=== PATIENT | male | born 1950 | race Caucasian/White ===

== ENCOUNTER → 2020-10-02 15:19 | Outpatient (CLI) | payer MEDICARE, SELFPAY ==
--- NOTE | 2020-10-02 15:22 | CT_ITS ---
PROCEDURE: CT LUNG SCREENING CLINICAL INDICATION: H/O NICOTINE DEPENDENCE Current smoker 50 pack year smoking history No prior COMPARISON: No exams were available for comparison TECHNIQUE: The exam was performed on a GE Light Speed [address] scanner using 2.90 mGy CTDI. A low dose helical CT CHEST was performed on a multi-detector scanner. All CT scans at the facility use one or more dose reduction, viz: automated exposure control, ma/kV adjustment per patient size (including targeted exams where dose is matched to indication, i.e. head), or iterative reconstruction technique. The LDCT was performed in a facility that meets the criteria for the screening program. Data regarding this exam was submitted to ACR which is an approved registry. The order for this exam indicates that it came as a result of a lung cancer screening counseling shard decision-making visit that included all the elements required of such a visit including smoking cessation. The radiologist interpreting this exam meets the [facility] criteria for the LDCT lung cancer screening program. The exam is reported using the Lung-RADS classification scale and reported to the ACR registry. NOTE: This study was performed for the specific purposes of lung cancer screening and is not an alternative to diagnostic chest CT. RADIATION DOSE: CTDI vol(CT dose Index-volume) = 2.90mG DLP (Dose Length Product) = 104.46 mGcm FINDINGS: COPD changes with scattered areas of scarring. Small area of thickening involves the right minor fissure image 42. 3 mm nodular opacity along the major fissure on the right image 47. 6 mm nodular opacity along the right major fissure laterally image 52. 4 mm nodular opacity right lung base posteriorly image 64, 3 mm lingular nodule laterally image 44 R. 3 mm opacity lingula inferiorly image 58 and 3 mm nodular opacity image 59 in the left lower lobe anterior laterally. The above mentioned image numbers are all in series 3. Recommend six-month CT chest with contrast for follow-up of the small probably benign nodules. OTHER FINDINGS: Cholelithiasis. Coronary artery calcifications IMPRESSION: Lung-RADS Category 3 Probably Benign regarding multiple small pulmonary nodules Follow-up: [address] Chest with contrast. Dictated by: Vinicio Montes MD 10/05/2020 08:20 Vinicio Montes MD in [place] 10/05/2020 08:20
== END ==
PROVIDERS: PCP Internal Medicine Adolescent Medicine; Visit Provider Internal Medicine Adolescent Medicine
DX: Z87.891 Personal history of nicotine dependence (principal); Z12.2 Encounter for screening for malignant neoplasm of respiratory organs
CPT/HCPCS: 71271

== ENCOUNTER → 2022-01-10 10:29 | Outpatient (CLI) | payer MEDICARE, SELFPAY | PROVIDERS: PCP Nurse Practitioner Family; Visit Provider Nurse Practitioner Family | DX: R06.02 Shortness of breath (principal); R60.0 Localized edema | CPT/HCPCS: 93306 ==

== ENCOUNTER → 2022-01-20 15:14 | Outpatient (CLI) | payer MEDICARE, SELFPAY ==
--- NOTE | 2022-01-20 15:17 | CT_ITS ---
FINAL REPORT TECHNIQUE: Axial images were obtained from the lung apex to the mid abdomen by computed tomography. This study was performed with techniques to keep radiation doses as low as reasonably achievable (ALARA). Individualized dose reduction techniques using automated exposure control or adjustment of mA and/or kV according to the patient's size were employed. CLINICAL HISTORY: LUNG NODULE COMPARISON: 10/02/2020 FINDINGS: CHEST CT LOW DOSE CTDI vol (mGy): 2.70 DLP (mGy-cm): 95.1 There is no axillary adenopathy. There is no hilar or mediastinal adenopathy. The heart is normal in size. There is no pericardial or pleural effusion. There is mild emphysema and mild scarring. There is a 3 mm nodule adjacent to the major fissure, stable. There is a 6 mm nodule along the right major fissure, stable. Several other less than 5 mm nodules are stable. No new mass or nodule is identified. And noted is cholelithiasis. IMPRESSION: Stable nodules. Lung RADS category 2. Recommend 12 month follow-up low-dose chest CT. Reviewed, Interpreted and Dictated by Jeffy Brito III, MD Transcribed by Sofia Rhoades Authenticated and [facility]
== END ==
PROVIDERS: PCP Nurse Practitioner Family; Visit Provider Nurse Practitioner Family
DX: Z87.891 Personal history of nicotine dependence (principal); Z12.2 Encounter for screening for malignant neoplasm of respiratory organs; R91.1 Solitary pulmonary nodule
CPT/HCPCS: 71271

== ENCOUNTER → 2022-01-24 10:56 | Outpatient (POV) | payer MEDICARE, SELFPAY ==
[2022-01-24 11:19] VITALS: BP 133/79; PULSE 97; RESP 18; TEMP 37.2; O2SAT 97; BMI 28.1
--- NOTE | 2022-01-24 11:53 | EXP.PAIN.OV ---
HPI Data of Consult Patient: new to practice Consult date: 01/24/22 Requesting Physician: Dianna Mosley APRN Primary Care Provider: Denise Alvarado APRN Consult Narrative Reason for consult: Low back pain, left leg pain History of present illness: Mr. Marino is a 71 year old male who presents today as a new patient. He is a referral from Fouzia Alvarado's office. Today he rates his pain a 8 out of 10. Patient states his pain is primarily in his low back that radiates into his left leg. He describes this as a aching, throbbing sensation with numbness and tingling. Patient denies any new trauma or injury. Patient states he has had low back pain for the last 2 to 3 years however it is progressively worsened over time. Patient states this frequently is worse at night when he lays down and often affects his sleeping. Patient does use ibuprofen as needed to help with his pain symptoms. Patient is also used heat and ice in the past. Patient has not been to physical therapy or had any lumbar imaging in the past. Patient has been to see a chiropractor that did provide significant help. Back in June the patient had worsening of his symptoms and started back going to the chiropractor. Patient denies any kidney issues or cardiac issues however he did state he has recently been experiencing swelling in his bilateral ankles and was given Lasix. Patient did have a echo that was normal. Patient has also had recent oral steroids that provided improvement of his symptoms however short-term. Patient is not currently on any scheduled medications. His Kenn is [phone]. It has been reviewed and appropriate. CC: Dianna Mosley APRN [facility] Medical History (Updated 01/24/22 @ 11:58 by Dianna Mosley APRN) Chronic back pain Social History (Updated 01/24/22 @ 11:24 by Vivi Be RN) Smoking Status: Current every day smoker alcohol intake: never current occupational status: retired Travel in the last 8 weeks: None Review of Systems Review of Systems Review of systems:: pertinent systems reviewed and negative unless documented below Review of systems (narrative): Review of Systems: General: No recent weight changes, no fever, no sleep disturbances Respiratory: No cough, no shortness of air, no recurring pulmonary infections Cardiovascular/peripheral vascular: No chest pain, no palpitations, no edema, no shortness of breath Gastrointestinal: No new onset incontinence, normal bowel movements reported Genitourinary: No new onset incontinence Musculoskeletal: Low back pain, left leg pain Psychiatric: [Normal mood/affect] Neurological: [Denies weakness in extremities], [denies balance issues] Meds Home Medications and Allergies Home Medications Medication Instructions Recorded Confirmed Type furosemide 20 mg tablet 20 mg PO NEEDED PRN FLUID 01/24/22 01/24/22 History New Prescriptions to Start Prescriptions: Objective Vital signs: Temp Pulse Resp BP Pulse Ox 98.9 F 97 H 18 133/79 97 01/24/22 11:19 01/24/22 11:19 01/24/22 11:19 01/24/22 11:19 01/24/22 11:19 Narrative: Physical Exam: General: Alert and oriented x3, no acute distress, pleasant and cooperative Lungs: Respirations even and unlabored, symmetrical chest expansion Eyes: PERRL Musculoskeletal: Flexion and extension of lumbar [spine] somewhat guarded secondary to pain, [antalgic gait noted] Neurological: Speech clear, no gross sensory deficit Assessment and Plan *Assessment and plan (1) Low back pain: Status: Acute Category: Medical Code(s): M54.50 - Low back pain, unspecified (2) Left leg pain: Status: Acute Category: Medical Code(s): M79.605 - Pain in left leg (3) Degenerative disc disease, lumbar: Status: Acute Category: Medical Code(s): M51.36 - Other intervertebral disc degeneration, lumbar region (4) Lumbar radiculopathy: Status: Acute Category
== END | disposition home or self-care (01) ==
PROVIDERS: PCP Nurse Practitioner Family; Visit Provider Nurse Practitioner Family
DX: M51.16 Intervertebral disc disorders with radiculopathy, lumbar region (principal); M79.605 Pain in left leg
CPT/HCPCS: 99202; G0463

== ENCOUNTER 2022-01-28 15:26 | Day surgery (SDC) | payer MEDICARE, SELFPAY ==
[2022-01-28 15:50] VITALS: BP 149/85; PULSE 92; RESP 18; TEMP 36.8; O2SAT 98; BMI 28.1
[2022-01-28 16:24] VITALS: BP 186/89; PULSE 105; RESP 18; O2SAT 97
[2022-01-28 16:27] VITALS: BP 186/89; PULSE 105; RESP 18; O2SAT 97
--- NOTE | 2022-01-28 16:31 | EXP.PAIN.PRO ---
Procedure Date: 01/28/22 Time: 16:32 Anesthesiologist:: Marky Yoon MD Complications:: None Pre-procedure Diagnosis:: Degenerative disc disease of lumbar spine with lumbar radiculopathy symptoms. Post-procedure Diagnosis:: Same Indications for Procedure:: This patient is a pleasant 71-year-old white male who we are treating for low back pain with lumbar radiculopathy symptoms. He has increasing pain in his back rating down both legs. We will plan on a lumbar epidural steroid injection under fluoroscopy today. Procedure Details:: Informed consent was obtained and the risk and benefits of the procedure was explained to the patient. The patient was taken to the procedure room. The patient was placed prone on the procedure table. The patient was prepped and draped in sterile fashion. C-arm fluoroscopy was used to view the lumbar spine. Skin and subcutaneous tissues were anesthetized using lidocaine. I placed an 18-gauge epidural needle and advanced into the L4-L5 interspace using fluoroscopic guidance and leyo-fs-susxdqdeqo to air. After confirmation of needle placement in the epidural space with dye I injected 2 mL of lidocaine 1.5% with Depo-Medrol 80 mg. Patient tolerated the procedure well with no complications. Plan and Disposition:: We will follow-up with him in 2 weeks. Will reevaluate symptoms at that time.
[2022-01-28 16:45] VITALS: BP 142/84; PULSE 66; RESP 20; O2SAT 98
== END 2022-01-28 16:45 | disposition home or self-care (01) ==
PROVIDERS: PCP Nurse Practitioner Family; Visit Provider Anesthesiology
DX: M51.16 Intervertebral disc disorders with radiculopathy, lumbar region (principal)
CPT/HCPCS: 62323; J1040; Q9966

== ENCOUNTER → 2022-02-03 14:12 | Outpatient (CLI) | payer MEDICARE, SELFPAY ==
--- NOTE | 2022-02-03 14:15 | MR_ITS ---
FINAL REPORT CLINICAL HISTORY: LOWER BACK PAIN lower back pain with left leg pain x 2 months numbness and tinglin g FINDINGS: Multiplanar MR imaging of the lumbar spine was performed without contrast. On the sagittal T2-weighted images, there is abnormal decreased signal throughout the lumbar discs. There is moderate loss of disc height at L5-S1. The vertebrae are of normal height. The vertebral alignment is normal. T12-L1: There is no significant canal stenosis or neural foraminal narrowing. L1-2: There is no significant canal stenosis or neural foraminal narrowing. L2-3: There is no significant canal stenosis or neural foraminal narrowing. L3-4: Mild diffuse disc bulge with mild bilateral neural foraminal narrowing. L4-5: Yofa-xs-kgbfnfqb diffuse disc bulge with mild bilateral facet hypertrophy. Moderate bilateral neural foraminal narrowing. L5-S1: Mild diffuse disc bulge with endplate hypertrophy. High-grade left and moderate right neural foraminal narrowing. IMPRESSION: Diffuse changes of degenerative disc disease with neural foraminal compromise most evident bilaterally at L4-L5 and on the left at L5-S1. Reviewed, Interpreted and Dictated by Bhupendra Jackson MD Transcribed by Joshua Regan Authenticated and [facility]
== END ==
PROVIDERS: PCP Nurse Practitioner Family; Visit Provider Nurse Practitioner Family
DX: M54.50 Low back pain, unspecified (principal)
CPT/HCPCS: 72148; 76376

== ENCOUNTER → 2022-02-15 10:18 | Outpatient (POV) | payer MEDICARE, SELFPAY ==
[2022-02-15 10:43] VITALS: BP 124/88; PULSE 90; RESP 18; O2SAT 96; BMI 28.1
--- NOTE | 2022-02-15 11:15 | EXP.PAIN.SOA ---
[facility] Pain Management SOAP Note Subjective:: Patient is a pleasant 71-year-old male who presents today for follow-up of lumbar epidural steroid injection at L4-L5 on 01/28/2022. We are currently treating the patient for degenerative disc disease of lumbar spine with lumbar radiculopathy symptoms. Patient states he has had 75 to 80% relief following this injection and states it lasted for approximately 3 weeks. Patient states over the last couple of nights he has had worsened throbbing pain around his calves that wakes him up in the middle of the night. Patient states he frequently has to get up and move around in order to get any relief. I did prescribe him at our last visit tizanidine 4 mg at bedtime. Patient stated this medication did seem to help improve some of his symptoms. Patient has recently had a MRI of his lumbar spine. Patient does manage his pain with ozwy-ert-fnezgyb ibuprofen, heat and ice to provide some improvement. Patient has been seen by a chiropractor in the past that provided some relief. He is not currently on any scheduled medications. His Kenn is [phone]. It has been reviewed and appropriate. Review of Systems: General: No recent weight changes, no fever, no sleep disturbances Respiratory: No cough, no shortness of air, no recurring pulmonary infections Cardiovascular/peripheral vascular: No chest pain, no palpitations, no edema, no shortness of breath Gastrointestinal: No new onset incontinence, normal bowel movements reported Genitourinary: No new onset incontinence Musculoskeletal: Low back pain, leg pain Psychiatric: [Normal mood/affect] Neurological: [Denies weakness in extremities], [denies balance issues] Objective:: Physical Exam: General: Alert and oriented x3, no acute distress, pleasant and cooperative Lungs: Respirations even and unlabored, symmetrical chest expansion Eyes: PERRL Musculoskeletal: Flexion and extension of lumbar [spine] somewhat guarded secondary to pain, [antalgic gait noted] Neurological: Speech clear, no gross sensory deficit CLINICAL HISTORY: LOWER BACK PAIN? lower back pain with left leg pain x 2 months numbness and tinglin g FINDINGS: Multiplanar MR imaging of the lumbar spine was performed without contrast. On the sagittal T2-weighted images, there is abnormal decreased signal throughout the lumbar discs.? There is moderate loss of disc height at L5-S1.? The vertebrae are of normal height. The vertebral alignment is normal.? ? T12-L1: There is no significant canal stenosis or neural foraminal narrowing. L1-2: There is no significant canal stenosis or neural foraminal narrowing.? L2-3: There is no significant canal stenosis or neural foraminal narrowing.? L3-4:? Mild diffuse disc bulge with mild bilateral neural foraminal narrowing.? L4-5: Scef-yj-yfrcndyh diffuse disc bulge with mild bilateral facet hypertrophy.? Moderate bilateral neural foraminal narrowing. L5-S1:? Mild diffuse disc bulge with endplate hypertrophy. High-grade left and moderate right neural foraminal narrowing. IMPRESSION: Diffuse changes of degenerative disc disease with neural foraminal compromise most evident bilaterally at L4-L5 and on the left at L5-S1. Reviewed, Interpreted and Dictated by Bhupendra Jackson MD Transcribed by Joshua Regan Authenticated and [facility] Assessment:: Degenerative disc disease of lumbar spine with lumbar radiculopathy symptoms, restless leg syndrome Plan:: Patient has had significant improvement of his pain symptoms in his low back following his last lumbar epidural steroid injection. Patient's MRI did show degenerative disc disease with neuroforaminal compromise most evident bilaterally at L4-L5 on the left at L5-S1. I have counseled the patient that he may require additional lumbar epidurals in the future at this location. Patient is experiencing worsening cramping, throbbing in his lower extremities
== END | disposition home or self-care (01) ==
PROVIDERS: PCP Nurse Practitioner Family; Visit Provider Nurse Practitioner Family
DX: M51.16 Intervertebral disc disorders with radiculopathy, lumbar region (principal); G25.81 Restless legs syndrome
CPT/HCPCS: 99212; G0463

== ENCOUNTER → 2022-03-24 11:02 | Outpatient (POV) | payer MEDICARE, SELFPAY ==
--- NOTE | 2022-03-24 11:20 | A.OFFVIS_ITS ---
[facility] Pain Management SOAP Note Subjective:: Patient is a pleasant 72-year-old male who presents today for follow-up. We are currently treating the patient for degenerative disc disease of lumbar spine with lumbar radiculopathy symptoms. Today he rates his pain a 0 out of 10. Patient previously had a lumbar epidural at L4-L5 on 01/28/2022 and he is still seeing improvement from this injection. Patient states he will occasionally have some pains in his leg but overall has done very well. Patient is managed with tizanidine 4 mg at bedtime. Patient denies any side effects from this medication. He states this medication does help with his sleeping at night. Patient has continue to use vacp-sld-ermrfzm ibuprofen along with heat and ice. Patient does have a history of seeing a chiropractor with some additional relief. Patient is not on any scheduled medications. His Kenn is [phone]. Its been reviewed and appropriate Review of Systems: General: No recent weight changes, no fever, no sleep disturbances Respiratory: No cough, no shortness of air, no recurring pulmonary infections Cardiovascular/peripheral vascular: No chest pain, no palpitations, no edema, no shortness of breath Gastrointestinal: No new onset incontinence, normal bowel movements reported Genitourinary: No new onset incontinence Musculoskeletal: Leg pain Psychiatric: [Normal mood/affect] Neurological: [Denies weakness in extremities], [denies balance issues] Objective:: Physical Exam: General: Alert and oriented x3, no acute distress, pleasant and cooperative Lungs: Respirations even and unlabored, symmetrical chest expansion Eyes: PERRL Musculoskeletal: Flexion and extension of lumbar [spine] somewhat guarded secondary to pain, [antalgic gait noted] Neurological: Speech clear, no gross sensory deficit Assessment:: Degenerative disc disease of lumbar spine with lumbar radiculopathy symptoms Plan:: Patient has continued to have significant improvement in his pain symptoms following his last lumbar epidural steroid injection. At this time he does not need any additional injective therapy. I will refill the patient's tizanidine 4 mg at bedtime and provide a 3-month supply of this medication. I will also order the patient a compounding cream. Patient will return to clinic in 3 months for reevaluation of symptoms, medication refill and follow-up. Patient has been instructed to contact the clinic with any concerns before the next appointment. Dr. Yoon has reviewed this note and agrees with this plan of care. This note was dictated using voice recognition software and make contain errors or omissions. [facility] Disclaimer: The information contained in this section may have been updated after the patient was seen, as this information can be updated by other users. Medical History Chronic back pain Family History (Updated 01/28/22 @ 15:53 by Bambi Leon RN) Other No significant family history Social History (Updated 01/28/22 @ 15:53 by Bambi Leon RN) Smoking Status: Current every day smoker alcohol intake: never current occupational status: retired Travel in the last 8 weeks: None
[2022-03-24 11:21] VITALS: BP 138/82; PULSE 90; RESP 18; O2SAT 98; BMI 28.1
== END | disposition home or self-care (01) ==
PROVIDERS: PCP Nurse Practitioner Family; Visit Provider Nurse Practitioner Family
DX: M51.16 Intervertebral disc disorders with radiculopathy, lumbar region (principal); F17.210 Nicotine dependence, cigarettes, uncomplicated; Z79.899 Other long term (current) drug therapy
CPT/HCPCS: 99212; G0463

== ENCOUNTER → 2022-06-13 08:40 | Outpatient (POV) | payer MEDICARE, SELFPAY ==
[2022-06-13 08:49] VITALS: BP 110/85; PULSE 93; RESP 18; O2SAT 98; BMI 28.1
--- NOTE | 2022-06-13 08:59 | A.OFFVIS_ITS ---
[facility] Pain Management SOAP Note Subjective:: Patient is a pleasant 72-year-old male who presents today for follow-up. We are currently treating the patient for degenerative disc disease of the lumbar spine with lumbar radiculopathy symptoms. Today he rates his pain a 4 out of 10. Patient denies any new trauma or injury. Patient denies any change location or type of pain he experiences. He does state that last Monday he did go to [place] with his for an [employer] tournament and that they had parked in a car lot that was further away and had to walk a significant distance. He states he did have difficulty with increased pain symptoms. He does describe this as a aching, throbbing sensation that is worse with increased activities. Patient has had lumbar epidural injections in the past that did provide significant improvement. His last injection was 01/28/22 that gave close to 4 months worth of relief. He is currently managed with tizanidine 4 mg at bedtime and compounding cream. He states he does also use diff-kzf-xahszjg ibuprofen along with heat and ice as needed. His Kenn is [phone]. Its been reviewed and appropriate. Review of Systems: General: No recent weight changes, no fever, no sleep disturbances Respiratory: No cough, no shortness of air, no recurring pulmonary infections Cardiovascular/peripheral vascular: No chest pain, no palpitations, no edema, no shortness of breath Gastrointestinal: No new onset incontinence, normal bowel movements reported Genitourinary: No new onset incontinence Musculoskeletal: Low back pain, leg pain Psychiatric: [Normal mood/affect] Neurological: [Denies weakness in extremities], [denies balance issues] Objective:: Physical Exam: General: Alert and oriented x3, no acute distress, pleasant and cooperative Lungs: Respirations even and unlabored, symmetrical chest expansion Eyes: PERRL Musculoskeletal: Flexion and extension of lumbar [spine] somewhat guarded secondary to pain, [antalgic gait noted] Neurological: Speech clear, no gross sensory deficit ORT score updated with low risk Assessment:: Degenerative disc disease of lumbar spine with lumbar radiculopathy symptoms Plan:: Patient is experiencing worsening pain in his low back with radiating symptoms into his legs. He did have limited range of motion of his lumbar spine during today's visit. I have discussed with the patient that he may benefit from repeat lumbar epidural steroid injections. Patient previously had his last lumbar epidural at the beginning of January that provided 75 to 80% relief lasting almost 4 months. Risk and benefits were discussed with the patient and he would like to proceed forward with this plan of care. Patient is not on any blood thinners. I will send in a 3-month supply of his tizanidine 4 mg at [facility]. We will schedule the patient for a LESI L4-L5. Patient has been instructed to contact the clinic with any concerns before the next appointment. Dr. Yoon has reviewed this note and agrees with this plan of care. This note was dictated using voice recognition software and make contain errors or omissions. [facility] Disclaimer: The information contained in this section may have been updated after the patient was seen, as this information can be updated by other users. Medical History Chronic back pain Family History (Updated 01/28/22 @ 15:53 by Bambi Leon RN) Other No significant family history Social History (Updated 01/28/22 @ 15:53 by Bambi Leon RN) Smoking Status: Current every day smoker alcohol intake: never current occupational status: retired Travel in the last 8
== END | disposition home or self-care (01) ==
PROVIDERS: PCP Nurse Practitioner Family; Visit Provider Nurse Practitioner Family
DX: M51.16 Intervertebral disc disorders with radiculopathy, lumbar region (principal)
CPT/HCPCS: 99212; G0463

== ENCOUNTER 2022-06-21 07:52 | Day surgery (SDC) | payer MEDICARE, SELFPAY ==
[2022-06-21 08:08] VITALS: BP 141/83; PULSE 92; RESP 18; TEMP 36.5; O2SAT 98; BMI 28.1
[2022-06-21 08:35] VITALS: BP 161/90; PULSE 88; RESP 18; O2SAT 97
[2022-06-21 08:36] VITALS: BP 161/90; PULSE 88; RESP 18; O2SAT 97
[2022-06-21 08:40] VITALS: BP 128/71; PULSE 84; RESP 18; O2SAT 98
--- NOTE | 2022-06-21 08:54 | EXP.PAIN.PRO ---
Procedure Date: 06/21/22 Time: 08:20 Anesthesiologist:: Arnaldo Quinn CRNA Complications:: None Pre-procedure Diagnosis:: Degenerative disc disease lumbar spine multilevels. Lumbar radiculopathy Post-procedure Diagnosis:: Same Indications for Procedure:: Patient is a very pleasant 72-year-old male that comes our clinic today for lumbar epidural steroid injection at the L4-5 level. He has had this in the past with significant improvement terms of his low back pain as well as bilateral hip and leg radicular symptoms. Procedure Details:: Procedure: Lumbar epidural steroid injection under fluoroscopy Informed consent was obtained and the risks and benefits of the procedure were explained to the patient. The patient was taken to the procedure room and noninvasive monitors placed, including noninvasive blood pressure cuff and pulse oximeter. The back was viewed using C-arm Fluoroscopy and prepped using Chloraprep as a cleansing solution and the L4-L5 interspace was palpated. Skin and subcutaneous tissues were anesthetized using lidocaine 1.5% and a 25-gauge needle. After this, an 18-gauge Touhy epidural needle was placed into the L4-L5 interspace and advanced using fluoroscopic guidance and loss of resistance to air until the epidural space was encountered. After confirmation of needle placement in the epidural space, with dye, a solution containing normal saline, 3 mL and Depo-Medrol 80 mg were incrementally injected into the lumbar epidural space. The patient tolerated the procedure well with no complications. The patient was observed in the Pain Clinic and then discharged home neurologically intact. Plan and Disposition:: Patient was discharged without incident.
== END 2022-06-21 08:40 | disposition home or self-care (01) ==
LOC: SC.PAINP 07:53
PROVIDERS: PCP Nurse Practitioner Family; Visit Provider Nurse Anesthetist, Certified Registered
DX: M51.16 Intervertebral disc disorders with radiculopathy, lumbar region (principal)
CPT/HCPCS: 62323; J1040

== ENCOUNTER → 2022-07-07 08:25 | Outpatient (POV) | payer MEDICARE, SELFPAY ==
--- NOTE | 2022-07-07 08:52 | EXP.PAIN.SOA ---
[facility] Pain Management SOAP Note Subjective:: Patient is a pleasant 72-year-old male who presents today for follow-up of lumbar epidural steroid injection at L4-L5 on 06/21/2022. We are currently treating the patient for degenerative disc disease of lumbar spine with lumbar radiculopathy symptoms. Today he rates his pain a 0 out of 10. He states he has had at least 75 to 80% improvement following this injection and feels like it is still continuing to provide additional relief. He does state that occasionally when he is doing more activity he does still have pain along his left hip to his calf. He does state that he was outside cutting tree limbs yesterday and did notice it some but it is much more tolerable than what it had been prior. Patient was previously prescribed tizanidine 4 mg at bedtime however he states it was causing some stomach upset so he has not been taking it. He is prescribed compounding cream. His Kenn is [id number]. Its been reviewed and appropriate. Review of Systems: General: No recent weight changes, no fever, no sleep disturbances Respiratory: No cough, no shortness of air, no recurring pulmonary infections Cardiovascular/peripheral vascular: No chest pain, no palpitations, no edema, no shortness of breath Gastrointestinal: No new onset incontinence, normal bowel movements reported Genitourinary: No new onset incontinence Musculoskeletal: Low back pain Psychiatric: [Normal mood/affect] Neurological: [Denies weakness in extremities], [denies balance issues] Objective:: Physical Exam: General: Alert and oriented x3, no acute distress, pleasant and cooperative Lungs: Respirations even and unlabored, symmetrical chest expansion Eyes: PERRL Musculoskeletal: Flexion and extension of lumbar [spine] somewhat guarded secondary to pain, [antalgic gait noted] Neurological: Speech clear, no gross sensory deficit Assessment:: Degenerative disc disease of lumbar spine with lumbar radiculopathy symptoms Plan:: Patient is doing well following his lumbar epidural steroid injection and does not require any additional injective therapy at this time. Patient will return to clinic in 1 month for reevaluation of symptoms and plan of care. Patient has been instructed to contact the clinic with any concerns before the next appointment. Dr. Yoon has reviewed this note and agrees with this plan of care. This note was dictated using voice recognition software and make contain errors or omissions. [facility] Disclaimer: The information contained in this section may have been updated after the patient was seen, as this information can be updated by other users. Medical History Chronic back pain Family History Other No significant family history Social History Smoking Status: Current every day smoker alcohol intake: never current occupational status: retired Travel in the last 8 weeks: None
[2022-07-07 09:24] VITALS: BP 146/74; PULSE 91; RESP 18; O2SAT 98; BMI 28.1
== END ==
PROVIDERS: PCP Nurse Practitioner Family; Visit Provider Nurse Practitioner Family
DX: M51.16 Intervertebral disc disorders with radiculopathy, lumbar region (principal)
CPT/HCPCS: 99212; G0463

== ENCOUNTER → 2022-08-04 08:34 | Outpatient (POV) | payer MEDICARE, SELFPAY ==
--- NOTE | 2022-08-04 08:50 | EXP.PAIN.SOA ---
[facility] Pain Management SOAP Note Subjective:: Patient is a pleasant 72-year-old male who presents today for 1 month follow-up. We are currently treating the patient for degenerative disc disease of lumbar spine with lumbar radiculopathy symptoms. Today he rates his pain a 2 out of 10. Patient denies any new trauma or injury. Patient denies any change location or type of pain he experiences. Patient did have a lumbar epidural steroid injection back at the end of May that provided approximately 80% relief and he feels like it is still continuing to do well. Patient has been able to increase his activity and states that he was just golfing yesterday and following that did have to push mow his mother's yard. He states he is having a little stiffness following that however he is doing much better from previous. Patient is prescribed compounding cream. His Kenn has been reviewed and is appropriate. Review of Systems: General: No recent weight changes, no fever, no sleep disturbances Respiratory: No cough, no shortness of air, no recurring pulmonary infections Cardiovascular/peripheral vascular: No chest pain, no palpitations, no edema, no shortness of breath Gastrointestinal: No new onset incontinence, normal bowel movements reported Genitourinary: No new onset incontinence Musculoskeletal: Low back pain Psychiatric: [Normal mood/affect] Neurological: [Denies weakness in extremities], [denies balance issues] Objective:: Physical Exam: General: Alert and oriented x3, no acute distress, pleasant and cooperative Lungs: Respirations even and unlabored, symmetrical chest expansion Eyes: PERRL Musculoskeletal: Flexion and extension of lumbar [spine] somewhat guarded secondary to pain, [antalgic gait noted] Neurological: Speech clear, no gross sensory deficit Assessment:: Degenerative disc disease of lumbar spine with lumbar radiculopathy symptoms Plan:: Patient continues to do well from his lumbar epidural steroid injection and does not require any additional injective therapy. Patient will return to clinic in 3 months for reevaluation of symptoms and follow-up. Patient has been instructed to contact the clinic with any concerns before the next appointment. Dr. Yoon has reviewed this note and agrees with this plan of care. This note was dictated using voice recognition software and make contain errors or omissions. [facility] Disclaimer: The information contained in this section may have been updated after the patient was seen, as this information can be updated by other users. Medical History Chronic back pain Family History Other No significant family history Social History Smoking Status: Current every day smoker alcohol intake: never current occupational status: retired Travel in the last 8 weeks: None
[2022-08-04 10:07] VITALS: BP 115/73; PULSE 89; RESP 18; O2SAT 98; BMI 24.0
== END ==
PROVIDERS: PCP Nurse Practitioner Family; Visit Provider Nurse Practitioner Family
DX: M51.16 Intervertebral disc disorders with radiculopathy, lumbar region (principal)
CPT/HCPCS: 99212; G0463

== ENCOUNTER → 2022-11-14 08:18 | Outpatient (POV) | payer MEDICARE, SELFPAY ==
[2022-11-14 08:36] VITALS: BP 131/73; PULSE 78; RESP 18; O2SAT 98; BMI 27.3
--- NOTE | 2022-11-14 08:42 | A.OFFVIS_ITS ---
[facility] Pain Management SOAP Note Subjective:: Patient is a pleasant 72-year-old male who presents today for 3-month follow-up. We are currently treating the patient for degenerative disc disease of lumbar spine with lumbar radiculopathy symptoms. Today he rates his pain a 5 out of 10. Patient denies any new trauma or injury. He denies any change location or type of pain he experiences. Patient states he continues to get significant relief from his lumbar epidural steroid injection L4-L5 that was done back in May. Patient states that he only notices more pain when he seems to overdo it such as doing the weedeater. He does state that while he is doing golf he does not notice the tension that he had prior. Patient is prescribed compounding cream. His Kenn is [id number]. Its been reviewed and appropriate. Review of Systems: General: No recent weight changes, no fever, no sleep disturbances Respiratory: No cough, no shortness of air, no recurring pulmonary infections Cardiovascular/peripheral vascular: No chest pain, no palpitations, no edema, no shortness of breath Gastrointestinal: No new onset incontinence, normal bowel movements reported Genitourinary: No new onset incontinence Musculoskeletal: Low back pain Psychiatric: [Normal mood/affect] Neurological: [Denies weakness in extremities], [denies balance issues] Objective:: Physical Exam: General: Alert and oriented x3, no acute distress, pleasant and cooperative Lungs: Respirations even and unlabored, symmetrical chest expansion Eyes: PERRL Musculoskeletal: Flexion and extension of lumbar [spine] somewhat guarded secondary to pain, [antalgic gait noted] Neurological: Speech clear, no gross sensory deficit Assessment:: Degenerative disc disease of lumbar spine with lumbar radiculopathy symptoms Plan:: Patient continues to get significant relief from his lumbar epidural steroid injection and does not require any additional injective therapy. Patient will return to clinic in 6 months for reevaluation of symptoms and plan of care. Patient has been instructed to contact the clinic with any concerns before the next appointment. Dr. Yoon has reviewed this note and agrees with this plan of care. This note was dictated using voice recognition software and make contain errors or omissions. [facility] Disclaimer: The information contained in this section may have been updated after the patient was seen, as this information can be updated by other users. Medical History Chronic back pain Family History Other No significant family history Social History Smoking Status: Current every day smoker alcohol intake: never current occupational status: retired Travel in the last 8 weeks: None
== END ==
PROVIDERS: PCP Nurse Practitioner Family; Visit Provider Nurse Practitioner Family
DX: M51.16 Intervertebral disc disorders with radiculopathy, lumbar region (principal)
CPT/HCPCS: 99212; G0463

== ENCOUNTER → 2023-02-02 13:32 | Outpatient (CLI) | payer MEDICARE, SELFPAY ==
--- NOTE | 2023-02-02 13:40 | CT_ITS ---
FINAL REPORT TECHNIQUE: Thin section axial images were obtained through the lungs using a low-dose technique per lung cancer screening protocol. Reconstruction images were obtained using the axial data. Exam was performed using dose reduction technique. CLINICAL HISTORY: TOBACCO USER smoker, 1ppd x 40 years COMPARISON: 01/20/2022 FINDINGS: CTDLvol: 2.90 DLP: 116.72 Current smoker 40 pack year history Lungs: There is a subpleural left upper lobe 5 mm nodule seen on image 47 which is unchanged. There are several additional smaller subpleural lingular nodules which are also stable. There is a subpleural 5 mm right lower lobe nodule seen on image 60 which is stable. Nodule along the right major fissure is stable. Additional nodules in both lungs are also stable. No new nodule. Lymph nodes: No thoracic lymphadenopathy. Mediastinum: Heart size is normal. Pleura/pericardium: No pleural or pericardial effusion. Other: No acute abnormality in the upper abdomen. IMPRESSION: Stable bilateral pulmonary nodules. Lung RADS: 2 Recommendation: 12 month low-dose CT chest Reviewed, Interpreted and Dictated by Birgit Duque MD Transcribed by Nilda Hernandez Authenticated and . [facility]
== END ==
PROVIDERS: PCP Nurse Practitioner Family; Visit Provider Nurse Practitioner Family
DX: Z87.891 Personal history of nicotine dependence (principal); Z12.2 Encounter for screening for malignant neoplasm of respiratory organs; R91.1 Solitary pulmonary nodule
CPT/HCPCS: 71271

== ENCOUNTER 2023-05-18 08:16 | Outpatient (POV) | payer MEDICARE, SELFPAY ==
--- NOTE | 2023-05-18 08:48 | A.OFFVIS_ITS ---
[facility] Pain Management SOAP Note Subjective:: Patient is a pleasant 73-year-old male who presents today for follow-up. Currently treating the patient for degenerative disc disease of lumbar spine with lumbar radiculopathy symptoms. Today he does rate his pain a 5 out of 10. Patient denies any new trauma or injury. He does state that he is starting to experience a little bit more pain there in his low back with radiating symptoms down into his legs. He does describe this as an aching, throbbing sensation with numbness and tingling into his extremities. He states the pain does seem to get worse with increased activity or ambulation. He states it is starting to interfere with his ability to perform activities of daily living. Patient did previously have a lumbar epidural back in May 2022 that provided significant improvement of approximately 75 to 80% lasting up until the last few weeks. Patient is interested in repeating this injection. He does state that he knows coming up closer to spring he will be doing more golfing and having to mow yards. Patient is prescribed compounded cream. His Kenn has been reviewed and is appropriate. Review of Systems: General: No recent weight changes, no fever, no sleep disturbances Respiratory: No cough, no shortness of air, no recurring pulmonary infections Cardiovascular/peripheral vascular: No chest pain, no palpitations, no edema, no shortness of breath Gastrointestinal: No new onset incontinence, normal bowel movements reported Genitourinary: No new onset incontinence Musculoskeletal: Low back pain, bilateral leg pain Psychiatric: [Normal mood/affect] Neurological: [Denies weakness in extremities], [denies balance issues] Objective:: Physical Exam: General: Alert and oriented x3, no acute distress, pleasant and cooperative Lungs: Respirations even and unlabored, symmetrical chest expansion Eyes: PERRL Musculoskeletal: Flexion and extension of lumbar [spine] somewhat guarded secondary to pain, [antalgic gait noted] Neurological: Speech clear, no gross sensory deficit Assessment:: Degenerative disc disease of lumbar spine with lumbar radiculopathy symptoms Plan:: Patient is experiencing worsening pain in his low back and legs with limited range of motion of his lumbar spine. Patient did previously have a lumbar epidural that provided upwards of 80% relief lasting nearly a year. I have discussed with the patient that he may benefit from repeat lumbar epidural steroid injection. Risk and benefits were discussed with the patient and he would like to proceed forward with this plan of care. Patient is not on any blood thinners. We will schedule the patient for a lumbar epidural steroid injection L4-L5 under fluoroscopy. Patient has been instructed to contact the clinic with any concerns before the next appointment. Dr. Yoon has reviewed this note and agrees with this plan of care. This note was dictated using voice recognition software and make contain errors or omissions. [facility] Disclaimer: The information contained in this section may have been updated after the patient was seen, as this information can be updated by other users. Medical History Chronic back pain Family History Other No significant family history Social History Smoking Status: Current every day smoker alcohol intake: never current occupational status: retired Travel in the last 8 weeks: None
[2023-05-18 09:03] VITALS: BP 126/74; PULSE 82; RESP 18; O2SAT 96; BMI 28.1
== END 2023-05-18 23:59 ==
LOC: SC.PAIN 08:17
PROVIDERS: PCP Nurse Practitioner Family; Visit Provider Nurse Practitioner Family
DX: M51.16 Intervertebral disc disorders with radiculopathy, lumbar region (principal)
CPT/HCPCS: 99212; G0463

== ENCOUNTER 2023-06-13 07:49 | Day surgery (SDC) | payer MEDICARE, SELFPAY ==
[2023-06-13 08:28] VITALS: BP 124/70; PULSE 84; RESP 16; TEMP 36.9; O2SAT 98; BMI 28.1
[2023-06-13 08:45] VITALS: BP 139/76; PULSE 78; RESP 18; O2SAT 98
[2023-06-13] MEDS: methylPREDNISolone ACETATE 80MG/ML VIAL 80 MG (08:45)
[2023-06-13 08:46] VITALS: BP 158/73; PULSE 84; RESP 18; O2SAT 98
[2023-06-13 08:49] VITALS: BP 158/73; PULSE 84; RESP 18; O2SAT 98
--- NOTE | 2023-06-13 09:17 | EXP.PAIN.PRO ---
Procedure Date: 06/13/23 Time: 09:00 Anesthesiologist:: Arnaldo Quinn CRNA Complications:: None Pre-procedure Diagnosis:: Lumbar degenerative disc disease with lumbar radiculopathy symptom Post-procedure Diagnosis:: Same Indications for Procedure:: Patient is a pleasant 73-year-old male who presents to the clinic today for lumbar epidural steroid injection. Patient reports low back and bilateral leg pain. Patient rates pain 5/10 Procedure Details:: Procedure: Lumbar epidural steroid injection under fluoroscopy Informed consent was obtained and the risks and benefits of the procedure were explained to the patient. The patient was taken to the procedure room and noninvasive monitors placed, including noninvasive blood pressure cuff and pulse oximeter. The back was viewed using C-arm Fluoroscopy and prepped using Chloraprep as a cleansing solution and the L4-L5 interspace was palpated. Skin and subcutaneous tissues were anesthetized using lidocaine 1.5% and a 25-gauge needle. After this, an 18-gauge Touhy epidural needle was placed into the L4-L5 interspace and advanced using fluoroscopic guidance and loss of resistance to air until the epidural space was encountered. After confirmation of needle placement in the epidural space, with dye, a solution containing normal saline, 3 mL and Depo-Medrol 80 mg were incrementally injected into the lumbar epidural space. The patient tolerated the procedure well with no complications. The patient was observed in the Pain Clinic and then discharged home neurologically intact. Plan and Disposition:: Patient was discharged without incident
== END 2023-06-13 08:45 | disposition home or self-care (01) ==
LOC: SC.PAINP 07:51
PROVIDERS: PCP Nurse Practitioner Family; Visit Provider Nurse Anesthetist, Certified Registered
DX: M51.16 Intervertebral disc disorders with radiculopathy, lumbar region (principal)
CPT/HCPCS: 62323; J1040

== ENCOUNTER 2023-07-05 09:18 | Outpatient (POV) | payer MEDICARE, SELFPAY ==
[2023-07-05 09:21] VITALS: BP 140/85; PULSE 79; RESP 18; TEMP 36.8; O2SAT 96; BMI 28.1
--- NOTE | 2023-07-05 10:00 | A.OFFVIS_ITS ---
[facility] Pain Management SOAP Note Subjective:: Patient is a pleasant 73-year-old male who presents today for follow-up of lumbar epidural steroid injection L4-L5 on 06/13/2023. Today he rates his pain a 0 out of 10. He states that he has had at least 90% improvement following this injection. He states he has been able to increase his activity with decreased pain symptoms and feels overall more functional. Patient does state that he will occasionally have the left hip pain but it is not very often and is random. He states that his sleeping is even better. He is prescribed compounded cream but states he has not even had to use this. 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 His Kenn is pending. Review of Systems: General: No recent weight changes, no fever, no sleep disturbances Respiratory: No cough, no shortness of air, no recurring pulmonary infections Cardiovascular/peripheral vascular: No chest pain, no palpitations, no edema, no shortness of breath Gastrointestinal: No new onset incontinence, normal bowel movements reported Genitourinary: No new onset incontinence Musculoskeletal: Low back pain Psychiatric: [Normal mood/affect] Neurological: [Denies weakness in extremities], [denies balance issues] Objective:: Physical Exam: General: Alert and oriented x3, no acute distress, pleasant and cooperative Lungs: Respirations even and unlabored, symmetrical chest expansion Eyes: PERRL Musculoskeletal: Flexion and extension of lumbar [spine] somewhat guarded secondary to pain, [antalgic gait noted] Neurological: Speech clear, no gross sensory deficit Assessment:: Degenerative disc disease of lumbar spine with lumbar radiculopathy symptoms Plan:: Patient has had significant improvement following his injection and does not require any additional injection therapy. Patient will return to clinic in 1 month for reevaluation of symptoms and plan of care. Patient has been instructed to contact the clinic with any concerns before the next appointment. Dr. Yoon has reviewed this note and agrees with this plan of care. This note was dictated using voice recognition software and make contain errors or omissions. [facility] Disclaimer: The information contained in this section may have been updated after the patient was seen, as this information can be updated by other users. Medical History Chronic back pain Family History Other No significant family history Social History Smoking Status: Current every day smoker alcohol intake: never current occupational status: retired Travel in the last 8 weeks: None
== END 2023-07-05 23:59 ==
LOC: SC.PAIN 09:19
PROVIDERS: Visit Provider Nurse Practitioner Family
DX: M51.16 Intervertebral disc disorders with radiculopathy, lumbar region (principal)
CPT/HCPCS: 99212; G0463

== ENCOUNTER 2023-08-03 08:38 | Outpatient (POV) | payer MEDICARE, SELFPAY ==
--- NOTE | 2023-08-03 08:48 | EXP.PAIN.SOA ---
[facility] Pain Management SOAP Note Subjective:: Patient is a pleasant 73-year-old male who presents today for 1 month follow-up.Today he rates his pain a 6 out of 10. He did previously have his last lumbar epidural back on June 12 that did provide at least 90% improvement. He states that he still feels like his overall back is still continuing to do well. He states that what he really notices now is he is hip along the left side. He states he will have a pain from time to time. He does state that he was told in the past that he had 1 leg shorter than the others and he used to have shoes with a higher heel for this however he has gotten back in the habit of wearing flat shoes. He states he does feel like if he changes his shoes back that he probably would have improvement of the overall hip issue. Patient states he has not tried the compounded cream on his hip. Patient is not on any other scheduled medications. His Kenn is appropriate. Review of Systems: General: No recent weight changes, no fever, no sleep disturbances Respiratory: No cough, no shortness of air, no recurring pulmonary infections Cardiovascular/peripheral vascular: No chest pain, no palpitations, no edema, no shortness of breath Gastrointestinal: No new onset incontinence, normal bowel movements reported Genitourinary: No new onset incontinence Musculoskeletal: Left hip pain Psychiatric: [Normal mood/affect] Neurological: [Denies weakness in extremities], [denies balance issues] Objective:: Physical Exam: General: Alert and oriented x3, no acute distress, pleasant and cooperative Lungs: Respirations even and unlabored, symmetrical chest expansion Eyes: PERRL Musculoskeletal: Flexion and extension of lumbar [spine] somewhat guarded secondary to pain, [antalgic gait noted] Neurological: Speech clear, no gross sensory deficit Assessment:: Degenerative disc disease of lumbar spine with lumbar radiculopathy symptoms, left leg pain, left hip pain Plan:: Patient is still doing well overall with continued improvement in his back. I have discussed with patient in future if he continues to have hip issues we may be able to do some injection therapy for that. We will follow-up with this at her next visit. I have recommended he try the compounded cream on his left hip pain. Patient will return to clinic in 3 months for reevaluation of symptoms and plan of care. Patient has been instructed to contact the clinic with any concerns before the next appointment. Dr. Yoon has reviewed this note and agrees with this plan of care. This note was dictated using voice recognition software and make contain errors or omissions. [facility] Disclaimer: The information contained in this section may have been updated after the patient was seen, as this information can be updated by other users. Medical History Chronic back pain Family History Other No significant family history Social History Smoking Status: Current every day smoker alcohol intake: never current occupational status: retired Travel in the last 8 weeks: None
[2023-08-03 08:51] VITALS: BP 118/63; PULSE 91; RESP 16; O2SAT 98; BMI 28.3
== END 2023-08-03 23:59 | disposition home or self-care (01) ==
LOC: SC.PAIN 08:40
PROVIDERS: PCP Nurse Practitioner Family; Visit Provider Nurse Practitioner Family
DX: M51.16 Intervertebral disc disorders with radiculopathy, lumbar region (principal); M79.605 Pain in left leg; M25.552 Pain in left hip
CPT/HCPCS: 99212; G0463

== ENCOUNTER 2023-11-02 08:34 | Outpatient (POV) | payer MEDICARE, SELFPAY ==
--- NOTE | 2023-11-02 09:01 | EXP.PAIN.SOA ---
[facility] Disclaimer: The information contained in this section may have been updated after the patient was seen, as this information can be updated by other users. Medical History Chronic back pain Family History Other No significant family history Social History Smoking Status: Current every day smoker alcohol intake: never current occupational status: retired Travel in the last 8 weeks: None PM Subjective & Objective Subjective Subjective:: Patient is a pleasant 73-year-old male who presents today for follow-up. Today he rates his pain a 1 out of 10. Patient denies any new trauma or injury. He states overall he is doing well. He states the pain is continued to do good and that on occasion he will have some pain in and around his neck however if he stops and takes a break it does ease off. Patient states the pain has been much better that he is not even having to use his compounded cream not much. His Kenn has been reviewed and is appropriate. Review of Systems: General: No recent weight changes, no fever, no sleep disturbances Respiratory: No cough, no shortness of air, no recurring pulmonary infections Cardiovascular/peripheral vascular: No chest pain, no palpitations, no edema, no shortness of breath Gastrointestinal: No new onset incontinence, normal bowel movements reported Genitourinary: No new onset incontinence Musculoskeletal: Neck pain Psychiatric: [Normal mood/affect] Neurological: [Denies weakness in extremities], [denies balance issues] Pain at rest (0-10 scale): 1 Objective Objective:: Physical Exam: General: Alert and oriented x3, no acute distress, pleasant and cooperative Lungs: Respirations even and unlabored, symmetrical chest expansion Eyes: PERRL Musculoskeletal: Flexion and extension of cervical [spine] somewhat guarded secondary to pain, [antalgic gait noted] Neurological: Speech clear, no gross sensory deficit Has patient had previous pain injection?: No Conservative treatment options previously tried: Home exercise plan Length of treatment: Longer than 6 weeks Meds Home Medications and Allergies Home Medications ?Medication ?Instructions ?Recorded ?Confirmed ?Type furosemide 20 mg tablet 20 mg PO NEEDED PRN FLUID 01/24/22 08/03/23 History ropinirole 0.25 mg tablet 0.25 mg PO HS LEGS 03/24/22 08/03/23 History tizanidine 4 mg tablet (Zanaflex) 4 mg PO HS . #30 tabs 06/13/22 08/03/23 Rx New Prescriptions to Start Prescriptions: Allergies Allergy/AdvReac Type Severity Reaction Status Date / Time No Known Allergies Allergy Verified 06/13/23 08:29 Assessment and Plan *Assessment and plan (1) Lumbar radiculopathy: Status: Acute Category: Medical Code(s): M54.16 - Radiculopathy, lumbar region (2) Degenerative disc disease, lumbar: Status: Acute Category: Medical Code(s): M51.36 - Other intervertebral disc degeneration, lumbar region Plan Patient is doing well and does not require any additional interventions at this time. Patient will return to clinic in 3 months for reevaluation of symptoms and plan of care. Patient has been instructed to contact the clinic with any concerns before the next appointment. Dr. Yoon has reviewed this note and agrees with this plan of care. This note was dictated using voice recognition software and make contain errors or omissions. All injections are used with Lidocaine or Bupivacaine and Depo Medrol.
[2023-11-02 09:18] VITALS: BP 134/75; PULSE 93; RESP 18; O2SAT 96; BMI 28.8
== END 2023-11-02 23:59 | disposition home or self-care (01) ==
LOC: SC.PAIN 08:35
PROVIDERS: PCP Internal Medicine Adolescent Medicine; Visit Provider Nurse Practitioner Family
DX: M54.16 Radiculopathy, lumbar region (principal); M51.36 Other intervertebral disc degeneration, lumbar region; Z79.899 Other long term (current) drug therapy
CPT/HCPCS: 99212; G0463

== ENCOUNTER 2024-02-29 08:23 | Outpatient (POV) | payer MEDICARE, SELFPAY ==
[2024-02-29 08:54] VITALS: BP 146/80; PULSE 89; RESP 16; O2SAT 97; BMI 27.3
--- NOTE | 2024-02-29 08:57 | A.OFFVIS_ITS ---
[facility] Disclaimer: The information contained in this section may have been updated after the patient was seen, as this information can be updated by other users. Medical History (Updated 02/29/24 @ 08:59 by Dianna Mosley APRN) Chronic back pain Family History Other No significant family history Social History Smoking Status: Current every day smoker alcohol intake: never current occupational status: other Travel in the last 8 weeks: None PM Subjective & Objective Subjective Subjective:: Patient is a pleasant 73-year-old male who presents today for worsening pain. Today he rates his pain a 6 out of 10. Patient states that although he has had the chronic low back pain for years over the last month it has progressively worsened. Patient does state that he was doing some work in the yard when it seemed to get very aggravated. He describes it as an aching, throbbing sensation that does run across to his low back primarily on the left side however it will go along the right and go into his buttocks area and upper thighs. Patient does state that initially the pain was very very severe and that it has eased off some however has still remained. He does state the pain is interfering with his ability perform activities of daily living such as cooking and cleaning. Patient has had significant improvement in the past with injections and would like to see about getting scheduled for additional due to the worsening pain. His Kenn has been reviewed and is appropriate. Review of Systems: General: No recent weight changes, no fever, no sleep disturbances Respiratory: No cough, no shortness of air, no recurring pulmonary infections Cardiovascular/peripheral vascular: No chest pain, no palpitations, no edema, no shortness of breath Gastrointestinal: No new onset incontinence, normal bowel movements reported Genitourinary: No new onset incontinence Musculoskeletal: Low back pain Psychiatric: [Normal mood/affect] Neurological: [Denies weakness in extremities], [denies balance issues] Pain at rest (0-10 scale): 6 Objective Objective:: Physical Exam: General: Alert and oriented x3, no acute distress, pleasant and cooperative Lungs: Respirations even and unlabored, symmetrical chest expansion Eyes: PERRL Musculoskeletal: Flexion and extension of lumbar [spine] somewhat guarded secondary to pain, [antalgic gait noted] point tenderness along bilateral SIs with positive bilateral Holger's, Apolonia's, Gaenslen's, compression and distraction exam Neurological: Speech clear, no gross sensory deficit Has patient had previous pain injection?: No Conservative treatment options previously tried: Home exercise plan Length of treatment: Longer than 12 weeks Meds Home Medications and Allergies Home Medications ?Medication ?Instructions ?Recorded ?Confirmed ?Type furosemide 20 mg tablet 20 mg PO NEEDED PRN FLUID 01/24/22 02/29/24 History ropinirole 0.25 mg tablet 0.25 mg PO HS LEGS 03/24/22 02/29/24 History tizanidine 4 mg tablet (Zanaflex) 4 mg PO HS . #30 tabs 06/13/22 02/29/24 Rx New Prescriptions to Start Prescriptions: Allergies Allergy/AdvReac Type Severity Reaction Status Date / Time No Known Allergies Allergy Verified 06/13/23 08:29 Assessment and Plan *Assessment and plan (1) Bilateral sacroiliitis: Status: Acute Category: Medical Code(s): M46.1 - Sacroiliitis, not elsewhere classified Plan Patient is experiencing worsening pain in his low back and bilateral hips with limited range of motion. He had point tenderness along his bilateral SI joints and positive bilateral Holger's, Apolonia's, Gaenslen's, compression and distraction exam. I did discuss with the patient that he may benefit from bilateral SI injections. Risk and benefits were discussed with the patient and he would like to proceed forward with this plan of care. Patient has had low back pain for longer than 6 months. Patient has not previously had any SI injections from our office. Patient has tried and failed conservative therapy including continued at home stretching exercise for longer than 12 weeks. Patient has been using [id number] medication along with heat and ice and topicals with no changes. Patient will be scheduled for bilateral SI injections under fluoroscopy. Patient has been instructed to contact the clinic with any concerns before the next appointment. Dr. Yoon has reviewed this note and agrees with this plan of care. This note was dictated using voice recognition software and make contain errors or omissions. All injections are used with Lidocaine or Bupivacaine and Depo Medrol.
== END 2024-02-29 23:59 | disposition home or self-care (01) ==
LOC: SC.PAIN 08:25
PROVIDERS: PCP Nurse Practitioner Family; Visit Provider Nurse Practitioner Family
DX: M46.1 Sacroiliitis, not elsewhere classified (principal); F17.210 Nicotine dependence, cigarettes, uncomplicated; Z73.89 Other problems related to life management difficulty
CPT/HCPCS: 99212; G0463

== ENCOUNTER 2024-03-25 10:38 | Outpatient (CLI) | payer MEDICARE, SELFPAY ==
--- NOTE | 2024-03-25 10:41 | CT_ITS ---
FINAL REPORT TECHNIQUE: Thin section axial images were obtained through the lungs using a low-dose technique per lung cancer screening protocol. Reconstruction images were obtained using the axial data. Exam was performed using dose reduction technique. CLINICAL HISTORY: SCREENING current smoker 1ppd x54 years COMPARISON: 02/02/2023 FINDINGS: CTDLvol: 2.9 DLP: 105.77 74-year-old male, current smoker 54 pack year history Lungs: No acute pulmonary abnormality. There is a stable 5 mm subpleural left upper lobe nodule identified, best seen on image #47. There are additional nodules present in the lingula, also stable. There are subpleural right lower lobe nodules, also stable when compared to the prior exam. No new nodules are identified. No consolidation is noted. Lymph nodes: No thoracic lymphadenopathy. Mediastinum: Heart size is normal. Pleura/pericardium: No pleural or pericardial effusion. Other: No acute abnormality in the upper abdomen. IMPRESSION: Stable nodules left upper lobe and right lower lobe when compared to the prior exam of 02/02/2023. Lung RADS: 2 Recommendation: 12-month follow-up LDCT. Reviewed, Interpreted and Dictated by Birgit Duque MD Transcribed by Mar Galicia Authenticated and [facility]
== END 2024-03-25 23:59 | disposition home or self-care (01) ==
LOC: RAD 10:39
PROVIDERS: PCP Nurse Practitioner Family; Visit Provider Nurse Practitioner Family
DX: F17.210 Nicotine dependence, cigarettes, uncomplicated (principal); R91.1 Solitary pulmonary nodule
CPT/HCPCS: 71271

== ENCOUNTER 2024-03-26 12:47 | Day surgery (SDC) | payer MEDICARE, SELFPAY ==
[2024-03-26 13:08] VITALS: BP 114/75; PULSE 91; RESP 16; TEMP 36.6; O2SAT 96; BMI 26.9
--- NOTE | 2024-03-26 13:25 | P.PCN_ITS ---
Procedure Date: 03/26/24 Time: 13:10 Anesthesiologist:: Arnaldo Quinn CRNA Complications:: None Pre-procedure Diagnosis:: Bilateral sacroiliitis Post-procedure Diagnosis:: Same Indications for Procedure:: Patient is a pleasant 74-year-old male who comes our clinic today for bilateral sacroiliac joint injections cortisone and local anesthetic. Patient describes low lumbar back pain off the midline bilaterally. Also, bilateral posterior hip pain. He describes having difficulty transitioning from sitting to standing. He rates his pain 5/10. Procedure Details:: Procedure: Bilateral sacroiliac joint injections under fluoroscopy Informed consent was obtained and the risks and benefits of the procedure were explained to the patient.~ The patient was taken to the procedure room and noninvasive monitors were placed including a noninvasive blood pressure cuff and pulse oximeter.~ The patient was placed prone on the procedure table. Both hips were cleansed using Betadine as a cleansing solution. C-arm fluoroscopy was used to view the right sacroiliac joint.~ The skin and subcutaneous tissues were anesthetized using lidocaine 1.5% and a 25-gauge needle.~ After this, a 22-gauge spinal needle was inserted under fluoroscopic guidance into the inferior aspect of the right sacroiliac joint.~ Omnipaque dye was injected and good spread was seen throughout the joint.~ After this, approximately 5 mL of bupivacaine, 0.25% and Depo-Medrol, 40 mg was incrementally injected into the right sacroiliac joint. We then moved to the left sacroiliac joint.~ The skin and subcutaneous tissues were anesthetized using lidocaine 1.5% and a 25-gauge needle.~ After this, a 22- gauge spinal needle was inserted under fluoroscopic guidance into the inferior aspect of the left sacroiliac joint.~ Omnipaque dye was injected and good spread was seen throughout the joint. After this, approximately 5 mL of bupivacaine, 0.25% and Depo-Medrol, 40 mg was incrementally injected into the left sacroiliac joint.~ The patient tolerated the procedure well with no complications. The patient was observed in the Pain Clinic and then was discharged home neurologically intact. Plan and Disposition:: Patient was discharged without incident.
[2024-03-26 13:32] VITALS: BP 121/66; PULSE 85; RESP 16; TEMP 36.2; O2SAT 95
[2024-03-26] MEDS: LIDOCAINE 1% 5ML PF VIAL 5 ML (13:58)
[2024-03-26] MEDS: BUPIVACAINE 0.25% 10ML INJ 25 MG IJ (13:58)
[2024-03-26] MEDS: methylPREDNISolone ACETATE 80MG/ML VIAL 80 MG (14:01)
== END 2024-03-26 13:32 | disposition home or self-care (01) ==
PROVIDERS: PCP Nurse Practitioner Family; Visit Provider Nurse Anesthetist, Certified Registered
DX: M46.1 Sacroiliitis, not elsewhere classified (principal)
CPT/HCPCS: 27096; G0260; J1010

== ENCOUNTER 2024-04-10 10:36 | Outpatient (POV) | payer MEDICARE, SELFPAY ==
--- NOTE | 2024-04-10 11:00 | EXP.PAIN.SOA ---
[facility] Disclaimer: The information contained in this section may have been updated after the patient was seen, as this information can be updated by other users. Medical History Chronic back pain Family History Other No significant family history Social History Smoking Status: Current every day smoker alcohol intake: never current occupational status: other Travel in the last 8 weeks: None PM Subjective & Objective Subjective Subjective:: Patient is a pleasant 74-year-old male who presents today for follow-up of bilateral SI injections. He denies any new trauma or injury. He does state that these injections have provided at least 95% improvement and are still helping. He states he is able to lay on his sides now when he sleeps and feels much more functional. He states he is even been out shoveling snow with decreased pain. He rates his pain a 0 out of 10 today. His Kenn has been reviewed and is appropriate. Review of Systems: General: No recent weight changes, no fever, no sleep disturbances Respiratory: No cough, no shortness of air, no recurring pulmonary infections Cardiovascular/peripheral vascular: No chest pain, no palpitations, no edema, no shortness of breath Gastrointestinal: No new onset incontinence, normal bowel movements reported Genitourinary: No new onset incontinence Musculoskeletal: Low back pain Psychiatric: [Normal mood/affect] Neurological: [Denies weakness in extremities], [denies balance issues] Pain at rest (0-10 scale): 0 Objective Objective:: Physical Exam: General: Alert and oriented x3, no acute distress, pleasant and cooperative Lungs: Respirations even and unlabored, symmetrical chest expansion Eyes: PERRL Musculoskeletal: Flexion and extension of lumbar [spine] somewhat guarded secondary to pain Neurological: Speech clear, no gross sensory deficit Has patient had previous pain injection?: Yes Percent improvement in pain since last injection: 95% Conservative treatment options previously tried: Home exercise plan Length of treatment: Longer than 12 weeks Meds Home Medications and Allergies Home Medications ?Medication ?Instructions ?Recorded ?Confirmed ?Type furosemide 20 mg tablet 20 mg PO NEEDED PRN FLUID 01/24/22 03/26/24 History ropinirole 0.25 mg tablet 0.25 mg PO HS LEGS 03/24/22 03/26/24 History tizanidine 4 mg tablet (Zanaflex) 4 mg PO HS . #30 tabs 06/13/22 03/26/24 Rx New Prescriptions to Start Prescriptions: Allergies Allergy/AdvReac Type Severity Reaction Status Date / Time No Known Allergies Allergy Verified 06/13/23 08:29 Assessment and Plan *Assessment and plan (1) Degenerative disc disease, lumbar: Status: Acute Category: Medical Code(s): M51.369 - Other intervertebral disc degeneration, lumbar region without mention of lumbar back pain or lower extremity pain (2) Lumbar radiculopathy: Status: Acute Category: Medical Code(s): M54.16 - Radiculopathy, lumbar region Plan Patient has had significant improvement and does not require any additional injection therapy at this time. Patient will return to clinic in 6 weeks for reevaluation of symptoms and plan of care. Patient has been instructed to contact the clinic with any concerns before the next appointment. Dr. Yoon has reviewed this note and agrees with this plan of care. This note was dictated using voice recognition software and make contain errors or omissions. All injections are used with Lidocaine, Bupivacaine and Depo Medrol. Occasionally urine drug screen is needed to verify patient's compliance with our office pain contract. This is ordered based off specific treatments related to chronic pain with the potential to abuse certain medications.
[2024-04-10 12:23] VITALS: BP 145/83; PULSE 79; RESP 18; O2SAT 95; BMI 28.1
== END 2024-04-10 23:59 | disposition home or self-care (01) ==
LOC: SC.PAIN 10:37
PROVIDERS: PCP Nurse Practitioner Family; Visit Provider Nurse Practitioner Family
DX: M51.16 Intervertebral disc disorders with radiculopathy, lumbar region (principal); F17.210 Nicotine dependence, cigarettes, uncomplicated
CPT/HCPCS: 99212; G0463

== ENCOUNTER 2024-05-22 11:05 | Outpatient (POV) | payer MEDICARE, SELFPAY ==
[2024-05-22 11:15] VITALS: BP 113/73; PULSE 82; RESP 18; O2SAT 95; BMI 27.6
--- NOTE | 2024-05-22 11:38 | EXP.PAIN.SOA ---
[facility] Disclaimer: The information contained in this section may have been updated after the patient was seen, as this information can be updated by other users. Medical History Chronic back pain Family History Other No significant family history Social History Smoking Status: Current every day smoker alcohol intake: never current occupational status: other Travel in the last 8 weeks: None PM Subjective & Objective Subjective Subjective:: Patient is a pleasant 74 male who presents today for 6-week follow-up. Today he rates his pain a 0 out of 10. He denies any new trauma or injury. He does state that he continues to do well following his SI injections that he had previously that did provide 95% improvement. He does state that a week or so ago he was standing on concrete for a longer period of time and had a little bit worsening pain however it is still very manageable and is not interfering with his ability perform activities of daily living. His Kenn has been reviewed and is appropriate. Review of Systems: General: No recent weight changes, no fever, no sleep disturbances Respiratory: No cough, no shortness of air, no recurring pulmonary infections Cardiovascular/peripheral vascular: No chest pain, no palpitations, no edema, no shortness of breath Gastrointestinal: No new onset incontinence, normal bowel movements reported Genitourinary: No new onset incontinence Musculoskeletal: Low back pain Psychiatric: [Normal mood/affect] Neurological: [Denies weakness in extremities], [denies balance issues] Pain at rest (0-10 scale): 0 Objective Objective:: Physical Exam: General: Alert and oriented x3, no acute distress, pleasant and cooperative Lungs: Respirations even and unlabored, symmetrical chest expansion Eyes: PERRL Musculoskeletal: Flexion and extension of lumbar spine within normal limit Neurological: Speech clear, no gross sensory deficit Has patient had previous pain injection?: No Conservative treatment options previously tried: Home exercise plan Length of treatment: Longer than 12 weeks Meds Home Medications and Allergies Home Medications ?Medication ?Instructions ?Recorded ?Confirmed ?Type furosemide 20 mg tablet 20 mg PO NEEDED PRN FLUID 10/31/22 02/26/25 History ropinirole 0.25 mg tablet 0.25 mg PO HS LEGS 03/24/22 05/22/24 History tizanidine 4 mg tablet (Zanaflex) 4 mg PO HS . #30 tabs 06/13/22 05/22/24 Rx New Prescriptions to Start Prescriptions: Allergies Allergy/AdvReac Type Severity Reaction Status Date / Time No Known Allergies Allergy Verified 06/13/23 08:29 Assessment and Plan *Assessment and plan (1) Bilateral sacroiliitis: Status: Acute Category: Medical Code(s): M46.1 - Sacroiliitis, not elsewhere classified Plan Patient continues to do well and does not require any additional interventions at this time. Patient will return to clinic in 3 months. Patient has been instructed to contact the clinic with any concerns before the next appointment. Dr. Yoon has reviewed this note and agrees with this plan of care. This note was dictated using voice recognition software and make contain errors or omissions. All injections are used with Lidocaine, Bupivacaine and Depo Medrol. Occasionally urine drug screen is needed to verify patient's compliance with our office pain contract. This is ordered based off specific treatments related to chronic pain with the potential to abuse certain medications.
== END 2024-05-22 23:59 | disposition home or self-care (01) ==
PROVIDERS: PCP Nurse Practitioner Family; Visit Provider Nurse Practitioner Family
DX: M46.1 Sacroiliitis, not elsewhere classified (principal); F17.210 Nicotine dependence, cigarettes, uncomplicated
CPT/HCPCS: 99212; G0463

== ENCOUNTER 2024-08-15 10:19 | Outpatient (POV) | payer MEDICARE, SELFPAY ==
--- NOTE | 2024-08-15 10:42 | A.OFFVIS_ITS ---
[facility] Disclaimer: The information contained in this section may have been updated after the patient was seen, as this information can be updated by other users. Medical History Chronic back pain Family History Other No significant family history Social History Smoking Status: Current every day smoker alcohol intake: never current occupational status: other Travel in the last 8 weeks?: None PM Subjective & Objective Subjective Subjective:: Patient is a pleasant 74-year-old male who presents today for 3-month follow-up. Today he rates his pain a 5 out of 10. Patient denies any new falls or injuries. He does state overall he is still doing very well and still feels like his pain is much more manageable than it had been. He states when he is seated he is not really having any pain in his chest with increased activity. Patient has been weed eating and feels like this is very aggravating but typically he can stop and rest and it goes away. Patient did previously have SI injections that did provide 95% improvement and did make his pain much more tolerable. He still feels like right now he is doing well and does not need additional injections. His Kenn has been reviewed and is appropriate. Review of Systems: General: No recent weight changes, no fever, no sleep disturbances Respiratory: No cough, no shortness of air, no recurring pulmonary infections Cardiovascular/peripheral vascular: No chest pain, no palpitations, no edema, no shortness of breath Gastrointestinal: No new onset incontinence, normal bowel movements reported Genitourinary: No new onset incontinence Musculoskeletal: Low back pain Psychiatric: [Normal mood/affect] Neurological: [Denies weakness in extremities], [denies balance issues] Pain at rest (0-10 scale): 5 Objective Objective:: Physical Exam: General: Alert and oriented x3, no acute distress, pleasant and cooperative Lungs: Respirations even and unlabored, symmetrical chest expansion Eyes: PERRL Musculoskeletal: Flexion and extension of lumbar spine within normal limits Neurological: Speech clear, no gross sensory deficit Has patient had previous pain injection?: No Conservative treatment options previously tried: Home exercise plan Length of treatment: Longer than 12 weeks Meds Home Medications and Allergies Home Medications ?Medication ?Instructions ?Recorded ?Confirmed ?Type furosemide 20 mg tablet 20 mg PO NEEDED PRN FLUID 01/24/22 05/22/24 History ropinirole 0.25 mg tablet 0.25 mg PO HS LEGS 03/24/22 05/22/24 History tizanidine 4 mg tablet (Zanaflex) 4 mg PO HS . #30 tabs 06/13/22 05/22/24 Rx New Prescriptions to Start Prescriptions: Allergies Allergy/AdvReac Type Severity Reaction Status Date / Time No Known Allergies Allergy Verified 06/13/23 08:29 Assessment and Plan *Assessment and plan (1) Bilateral sacroiliitis: Status: Acute Category: Medical Code(s): M46.1 - Sacroiliitis, not elsewhere classified (2) Degenerative disc disease, lumbar: Status: Acute Category: Medical Code(s): M51.369 - Other intervertebral disc degeneration, lumbar region without mention of lumbar back pain or lower extremity pain Plan Patient continues to do well and does not require any additional injection therapy at this time. Patient will return to clinic in 6 months. Patient has been instructed to contact the clinic with any concerns before the next appointment. Dr. Yoon has reviewed this note and agrees with this plan of care. This note was dictated using voice recognition software and make contain errors or omissions. All injections are used with Lidocaine, Bupivacaine and dexamethasone. Occasionally urine drug screen is needed to verify patient's compliance with our office pain contract. This is ordered based off specific treatments related to chronic pain with the potential to abuse certain medications.
[2024-08-15 11:01] VITALS: BP 130/68; PULSE 78; RESP 18; O2SAT 96; BMI 28.1
== END 2024-08-15 23:59 | disposition home or self-care (01) ==
LOC: SC.PAIN 10:20
PROVIDERS: PCP Nurse Practitioner Family; Visit Provider Nurse Practitioner Family
DX: M46.1 Sacroiliitis, not elsewhere classified (principal); M51.369 Other intervertebral disc degeneration, lumbar region without mention of lumbar back pain or lower extremity pain; F17.200 Nicotine dependence, unspecified, uncomplicated
CPT/HCPCS: 99212; G0463